=== PATIENT | male | born 1950 | race Caucasian/White ===

== ENCOUNTER 2016-09-10 09:05 | Day surgery (SDC) | payer OTHER ==
[~2016-09-10] VITALS: Ht 185.4 cm; Wt 96.9 kg
[2016-09-10] MEDS ORDERED: NERVE PAIN MED (10:25)
[2016-09-10] MEDS ORDERED: iron (10:25)
[2016-09-10] MEDS ORDERED: docusate sodium (10:25)
[2016-09-10] MEDS ORDERED: prilosec otc (10:25)
[2016-09-10] MEDS ORDERED: blood pressure med (10:25)
[2016-09-10] MEDS ORDERED: [UNRECOGNIZED DRUG - REMARK] (10:25)
[2016-09-10 10:31] VITALS: Ht 185.4 cm; Wt 96.9 kg
[2016-09-10 11:00] VITALS: BP 154/90; PULSE 66; RESP 8
[2016-09-10 12:16] VITALS: BP 131/73; RESP 18
--- NOTE | 2016-09-11 05:42 | GILP ---
DATE OF PROCEDURE: 09/10/2016 PREOPERATIVE DIAGNOSES: 1. Iron deficiency anemia. 2. Chronic heartburn. POSTOPERATIVE DIAGNOSES: 1. 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 2. Reflux esophagitis with ulcers. 3. Biopsies were taken for histopathology. 4. Gastritis with erosions. 5. Gastric mucosal biopsies were taken to rule out Helicobacter pylori infection. 6. Small bowel biopsies were taken to rule out celiac disease. 7. Colonoscopy all the way to the cecum, poor prep making the exam very suboptimal and inadequate. 8. Diverticulosis of the colon. 9. Internal hemorrhoids. PROCEDURES PERFORMED: 1. Esophagogastroduodenoscopy and biopsy. 2. Colonoscopy. SURGEON: Rosalba Quiroz MD. INDICATION FOR PROCEDURE: Mr. Yuri Anguiano is a 66-year- old male patient who was noted to have iron deficiency anemia. He also had chronic heartburn not responding to therapy. The patient was scheduled for endoscopy and colonoscopy for further evaluation. The procedures and possible complications were well explained to the patient. The patient understood and consented to the procedures. DESCRIPTION OF PROCEDURE: Under the influence of anesthesia the gastroscope was carefully introduced into the esophagus and under direct vision it was advanced to the stomach, into the pylorus, into the duodenal bulb, and the descending duodenum. Findings esophagus, the patient had a hiatal hernia with reflux esophagitis and erosions. The patient was noted to have long segment Ramirez's esophagus and biopsies were taken for histopathology. Stomach, the patient had gastritis with erosions. Gastric mucosal biopsies were taken for a Helicobacter pylori test. Duodenum was normal. Small bowel biopsies were taken to rule out celiac disease. The colonoscope was carefully introduced in the rectum and under direct vision it was advanced all the way to the cecum. Findings, the patient had poor prep making the exam very suboptimal. He was noted to have diverticulosis of the colon and internal hemorrhoids. He tolerated the procedures very well and there was no complications from the procedures. At the end of procedure he was awake with stable vital signs and he was discharged home in the care of his family. IMPRESSION: Please see postoperative diagnoses. PLAN: 1. Omeprazole 40 mg p.o. b.i.d. 2. Await histopathology reports. 3. The patient will need repeat colonoscopy with a better preparation. Dictated By: MD KAREN Orozco/deidra/marco antonio /Document#: [id number] CC: Rosalba Quiroz MD;*[facility]*
[2016-09-11] MEDS ORDERED: PROPOFOL 40 ML ONE (18:02)
[2016-09-11] MEDS ORDERED: LIDOCAINE 2% (SDV) 5 ML INJ ONE (18:02)
== END 2016-09-10 14:49 | disposition home or self-care (01) ==
LOC: GIL 09:05
PROVIDERS: ATTEND Internal Medicine Gastroenterology
DX: R12 Heartburn (principal); D50.9 Iron deficiency anemia, unspecified; K44.9 Diaphragmatic hernia without obstruction or gangrene; K21.0 Gastro-esophageal reflux disease with esophagitis; K29.60 Other gastritis without bleeding; K57.90 Diverticulosis of intestine, part unspecified, without perforation or abscess without bleeding; K64.8 Other hemorrhoids; I10 Essential (primary) hypertension; E66.9 Obesity, unspecified; Z68.28 Body mass index [BMI] 28.0-28.9, adult
CPT/HCPCS: 43239; 45378; 87081; 88305; 88312; 88313; Z7610

== ENCOUNTER 2017-05-19 06:14 | Day surgery (SDC) | END 2017-05-19 10:35 | disposition home or self-care (01) ==